=== PATIENT | female | born 1950 | race Caucasian/White ===

== ENCOUNTER 2024-03-16 14:06 | Emergency (ER) | payer OTHER, SELFPAY ==
[2024-03-16 14:14] VITALS: BP 165/136
[2024-03-16 14:18] VITALS: BP 155/110
--- NOTE | 2024-03-16 15:26 | ED.GENMED ---
History of Present Illness
General
Chief Complaint: Musculo-Skeletal Complaint
Source: patient
Exam Limitations: none
Time Seen by Provider: 03/16/24 15:14
Travel History
Have you had any contact with someone who has COVID-19?: No
Do you have any symptoms of coronavirus? Fever > 100 degrees, chills, cough, shortness of breath, sore throat, loss of taste or smell, muscle aches, or headache?: No
History of Present Illness
History of Present Illness:
See MDM
Past History
Past History
ED Past Medical History: Arrthythmia (afib), HTN and Other (chronic back pain/sciatica)
Social History
Tobacco: Non-smoker
Alcohol: None
Drug: None
Living: with family
Employment: Employed
Phy Exam
Physical Exam
Physical Exam:
See MDM
Course
Orders/Labs/Results
Orders:
Orders
03/16/24 15:25
Diazepam [Valium] 2 mg PO NOW STA
Vital Signs
Initial and Last Documented VS:
Initial Vital Signs
Temp Pulse Resp BP Pulse Ox
98.5 F 106 16 165/136 98
03/16/24 14:14 03/16/24 14:14 03/16/24 14:14 03/16/24 14:14 03/16/24 14:14
Last Documented Vital Signs
Temp Pulse Resp BP Pulse Ox
98.5 F 91 16 141/89 98
03/16/24 14:14 03/16/24 16:13 03/16/24 16:13 03/16/24 16:13 03/16/24 16:13
MDM/Problems Addressed
Differential Diagnosis Includes:
HPI and MDM Narrative:
73-year-old female presenting with right back pain. Patient states she has noticed it over the past few days. It is worse when she gets up in the morning out of bed. Throughout the day, symptoms appear to resolve. She has been intermittently
missing her Eliquis on purpose so she can take Motrin. She denies any trauma. She believes it could be related to the way she is walking. She is favoring her 1 hip due to arthritis. She denies any trauma
On exam, she does have muscle spasm overlying right posterior rib cage. Lungs are clear. Given that symptoms are better when she starts ambulating, doubt ACS. Given that symptoms improve, doubt pneumothorax or fracture.
I did offer x-ray but patient declined.
Will try to avoid narcotics. Will give low-dose Valium to see if this helps with spasm
Physical exam
General: Well appearing and non-toxic
HEENT: protecting airway
Neck: appears supple
CV: No evidence of cyanosis
Resp: No accessory muscle use. Lungs clear
Back: Spasm noted to posterior lower rib cage. No rash
Abd: Non-distended
Extremities: No deformities
Neuro: alert
Psych: Normal affect
Skin: Intact
Problems Addressed including Acute and Chronic Conditions affecting care:
1. Muscle spasm
Acuity: acute
Prognosis: stable
Details: Will give dose of Valium and reassess
Updates
6 PM after prolonged observation, patient states she is feeling better. I did help her into bed as she requested. After several minutes, patient got herself out of bed to assess for the muscle strain. She states she is feeling better and feels
comfortable going home
Differential Diagnosis (but not limited to): Muscle spasm, rib contusion
Testing considered: Rib x-ray
Drug therapy (if applicable): OTC meds, please see d/c instruction regarding Rx drugs
Amount and/or Complexity of Data Reviewed
Clinical info obtained from: Patient
External data reviewed: N/A
Labs I independently reviewed (but not limited to): N/A
Radiology: N/A
Pulse Ox: not hypoxic
EKG independently reviewed: N/A
Mercantile Reporter: N/A
Critical Care: N/A
Risk of Complication:
Social Determinants of health: Good social support
Discussed with other providers: N/A
Escalation of Care includes Admit/Obs: After being observed in the Emergency Department, pt stable for discharge.
Occasional wrong word or 'sound a like' substitutions may have occurred due to the inherent limitations of voice recognition software. Read the chart carefully and recognize, using context, where substitutions have occurred.
*Critical Care Note
Total Time (30-74mins, 75-104mins- exclusive of procedures): Not Applicable
ED Attending Note
-
Portions of this chart may have been created with voice recognition software.� Occasional wrong word or��sound alike� substitutions may have occurred due to the inherent limitations of voice recognition software.
Discharge Plan
Departure
Patient Disposition: Home (Routine Discharge)
Date of Disposition: 03/16/24
Time of Disposition: 18:06
Patient with high blood pressure during this ER visit?: Yes
Discharge Problem:
Muscle spasm
Instructions: Muscle Strain (DC), BLOOD PRESSURE
Prescriptions:
New
diazepam [Valium] 2 mg tablet
2 mg PO BID PRN (Reason: muscle spasm) Qty: 14 0RF
No Action
apixaban [Eliquis] 5 MG tablet
5 mg PO BID Qty: 60 3RF
diltiazem HCl 120 MG capsule,extended release 24hr
120 mg PO DAILY Qty: 30 3RF
lisinopril [Zestril] 5 MG tablet
5 mg PO DAILY Qty: 30 3RF
Referrals:
Ray Bennett MD [Family Provider] -
Activity Restrictions/Additional Instructions:
Please return for any worsening symptoms.
You may return at any time if you have further concerns.
Please follow up with your doctor at the first available appointment, preferably this week.
Thank you for choosing [facility].
Interventions
Interventions:
*Risk Screen - Suicide Last Done: 03/16/24 16:13
*General Assessment Last Done: 03/16/24 16:13
*Neglect/Abuse Screening Last Done: 03/16/24 16:13
ED- Fall Risk Assessment Last Done: 03/16/24 16:13
*ED COVID-19 Vaccine History Last Done: 03/16/24 16:13
ED-Musculoskeletal Assessment Last Done: 03/16/24 16:13
Discharge Date and Time
Print Language: BULGARIAN
[2024-03-16] MEDS: VALIUM 2 MG PO (15:36)
[2024-03-16 16:13] VITALS: BP 141/89
== END 2024-03-16 18:12 | disposition home or self-care (01) ==
LOC: EMR 14:06
PROVIDERS: EMERGENCY PHYSICIAN Student in an Organized Health Care Education/Training Program; FAMILY PHYSICIAN Family Medicine
DX: M62.838 Other muscle spasm (principal); I48.91 Unspecified atrial fibrillation; I10 Essential (primary) hypertension; G89.29 Other chronic pain; M54.9 Dorsalgia, unspecified
CPT/HCPCS: 99282